=== PATIENT | female | born 1945 | race Caucasian/White ===

== ENCOUNTER 2017-04-08 11:15 | Inpatient (IN) | payer OTHER, BC ==
[~2017-04-08] VITALS: Ht 157.5 cm; Wt 90.0 kg
[2017-04-08] VITALS (10 sets, daily range): BP systolic 72–138; BP diastolic 42–110
[~2017-04-08 11:15] MED LIST: BAYER CHILDREN'81 M1 PO; CRESTOR20 MG PO; FISH OIL 1,0001 EAC7 PO; LEXAPRO20 MG PO; MULTI VITAMIN1 EACH PO; NASONEX17 GM NS; NEXIUM40 MG PO; TOPROL XL50 MG PO
[2017-04-08 12:34] LABS: BASE EXCESS -14.6 mEq/L (-3 to +3); BICARBONATE 12.7 mEq/L (22-26); CARBOXY HGB 4.3 % (0-5); METHEMOGLOBIN 1.5 % (0-1.5); PCO2 34 mm Hg (35-45); PO2 244 mm Hg (80-100)
[2017-04-08 12:35] LABS: COMMENTS - BLOOD GASES C+; SITE ALINE
[2017-04-08 12:36] LABS: DEVICE VENT; FI02 100 %; MECHANICAL RATE 18 resp/min; MODE ACVC; PEEP 5 CM/H20; TIDAL VOLUME 500 ML; TOTAL RESP RATE 18 resp/min
[2017-04-08 12:37] LABS: INTER. NORMALIZED RATIO 1.2
[2017-04-08 12:37] LABS: pH 7.18 (7.35-7.45)
[2017-04-08 12:39] LABS: PTT 43.9 SEC (25-37)
[2017-04-08 12:41] LABS: AMYLASE 128 IU/L (1-118); CHLORIDE 109 mEq/L (99-109); POTASSIUM 3.9 mEq/L (3.7-5.4); SODIUM 138 mEq/L (136-147)
[2017-04-08 12:43] LABS: GLUCOSE 381 mg/dL (70-99)
[2017-04-08 12:46] LABS: SERUM ETHYL ALCOHOL < 10 mg/dL
[2017-04-08 12:47] LABS: CREATININE 1.2 mg/dL (0.6-1.3); GFR ESTIMATE (CALCULATED) 47 mL/min/
[2017-04-08 12:48] LABS: UREA NITROGEN (BUN) 14 mg/dL (9-23)
[2017-04-08 12:50] LABS: LIPASE 91 U/L (1.0-51.0)
[2017-04-08 12:53] LABS: TROP-I INTERPRETATION POSITIVE
[2017-04-08 16:16] LABS: BASOPHIL (%) 0.3 % (0-1); BASOPHIL COUNT 0.1 K/uL (0-0.1); EOSINOPHIL (%) 0.2 % (0-5); HEMATOCRIT 45.1 % (36.0-46.0); HEMOGLOBIN 16.1 G/DL (11.9-15.5); IMMATURE GRANULOCYTE (%) 0.6 % (0.0-0.7); LYMPHOCYTE COUNT 1.5 K/uL (1.0-2.8); MCH 33.2 PG (29.0-34.0); MCHC 35.7 G/DL (30.0-36.0); MONOCYTE (%) 6.9 % (3-12); MONOCYTE COUNT 1.5 K/uL (0-0.8); PLATELET COUNT 168 K/uL (156-360); RBC DIS.WIDTH-CV 13.6 % (11.8-14.6); RBC DIS.WIDTH-SD 45.9 % (39-53); RED BLOOD COUNT 4.85 M/uL (3.80-5.20); WHITE BLOOD COUNT 21.2 K/uL (4.1-10.2)
[2017-04-08 16:25] LABS: BASE EXCESS -4.9 mEq/L (-3 to +3); CARBOXY HGB 2.2 % (0-5); METHEMOGLOBIN 2.2 % (0-1.5); PCO2 31 mm Hg (35-45)
[2017-04-08 16:26] LABS: BICARBONATE 18.8 mEq/L (22-26); COMMENTS - BLOOD GASES A+C+; DEVICE VENT; FI02 100 %; MECHANICAL RATE 22 resp/min; MODE ACVC; PEEP 10 CM/H20; PO2 414 mm Hg (80-100); SITE LR; TIDAL VOLUME 500 ML; TOTAL RESP RATE 22 resp/min; pH 7.39 (7.35-7.45)
[2017-04-08 17:27] LABS: C DIFF TOXIN NEGATIVE (NEGATIVE)
[2017-04-08 18:09] LABS: BASOPHIL (%) 0.3 % (0-1); BASOPHIL COUNT 0.1 K/uL (0-0.1); EOSINOPHIL (%) 0.1 % (0-5); HEMATOCRIT 46.5 % (36.0-46.0); HEMOGLOBIN 16.1 G/DL (11.9-15.5); IMMATURE GRANULOCYTE (%) 0.7 % (0.0-0.7); LYMPHOCYTE (%) 5.1 % (15-42); LYMPHOCYTE COUNT 1.2 K/uL (1.0-2.8); MCH 32.2 PG (29.0-34.0); MCHC 34.6 G/DL (30.0-36.0); MONOCYTE (%) 6.5 % (3-12); MONOCYTE COUNT 1.6 K/uL (0-0.8); NEUTROPHIL (%) 87.3 % (45-76); NEUTROPHIL COUNT 20.9 K/uL (1.8-6.4); PLATELET COUNT 174 K/uL (156-360); RBC DIS.WIDTH-CV 13.6 % (11.8-14.6); RBC DIS.WIDTH-SD 46.1 % (39-53); WHITE BLOOD COUNT 23.9 K/uL (4.1-10.2)
[2017-04-08 18:15] LABS: INTER. NORMALIZED RATIO 1.2
[2017-04-08 19:00] LABS: TROP-I INTERPRETATION POSITIVE; TROPONIN-I 108.07 ng/mL (0.0-0.30)
[2017-04-08 20:32] LABS: CHLORIDE 105 MEQ/L (99-109); CREATININE 1.1 MG/DL (0.6-1.3); GFR ESTIMATE (CALCULATED) 52 mL/min/; GLUCOSE 257 mg/dL (70-99); MAGNESIUM 1.8 mg/dl (1.3-2.7); PHOSPHORUS 2.4 mg/dL (2.5-4.9); POTASSIUM 3.1 MEQ/L (3.7-5.4); SODIUM 142 MEQ/L (136-147); UREA NITROGEN (BUN) 19 mg/dL (9-23)
[2017-04-08 20:59] LABS: CREATINE KINASE 6040 IU/L (1-294)
[2017-04-08 21:08] LABS: TOTAL CK 6040 IU/L (1-294)
[2017-04-08 21:21] LABS: CK-MB 329.4 ng/mL (0.0-4.9); CKMB RELATIVE INDEX 5.5 (0.0-3.9)
[2017-04-09] VITALS (23 sets, daily range): BP systolic 87–140; BP diastolic 64–92
[2017-04-09 00:40] LABS: BASOPHIL (%) 0.2 % (0-1); EOSINOPHIL (%) 0.1 % (0-5); HEMATOCRIT 43.3 % (36.0-46.0); IMMATURE GRANULOCYTE (%) 0.6 % (0.0-0.7); LYMPHOCYTE (%) 6.4 % (15-42); LYMPHOCYTE COUNT 1.2 K/uL (1.0-2.8); MCH 33.2 PG (29.0-34.0); MCHC 34.6 G/DL (30.0-36.0); MCV 95.8 FL (83-99); MONOCYTE (%) 4.6 % (3-12); MONOCYTE COUNT 0.9 K/uL (0-0.8); NEUTROPHIL (%) 88.1 % (45-76); NEUTROPHIL COUNT 16.5 K/uL (1.8-6.4); PLATELET COUNT 153 K/uL (156-360); RBC DIS.WIDTH-CV 13.8 % (11.8-14.6); RBC DIS.WIDTH-SD 48.5 % (39-53); RED BLOOD COUNT 4.52 M/uL (3.80-5.20); WHITE BLOOD COUNT 18.7 K/uL (4.1-10.2)
[2017-04-09 00:50] LABS: INTER. NORMALIZED RATIO 1.1
[2017-04-09 00:51] LABS: CHLORIDE 112 mEq/L (99-109); MAGNESIUM 1.9 mg/dL (1.3-2.7); POTASSIUM 3.3 mEq/L (3.7-5.4); SODIUM 141 mEq/L (136-147)
[2017-04-09 00:53] LABS: GLUCOSE 203 mg/dL (70-99)
[2017-04-09 00:56] LABS: PHOSPHORUS 3.3 mg/dL (2.5-4.9)
[2017-04-09 00:57] LABS: GFR ESTIMATE (CALCULATED) 58 mL/min/; UREA NITROGEN (BUN) 20 mg/dL (9-23)
[2017-04-09 01:02] LABS: TROP-I INTERPRETATION POSITIVE
[2017-04-09 01:11] LABS: TOTAL CK 7749 IU/L (1-294)
[2017-04-09 01:21] LABS: CREATINE KINASE 7749 IU/L (1-294)
[2017-04-09 01:27] LABS: TROPONIN-I 74.87 ng/mL (0.0-0.30)
[2017-04-09 01:43] LABS: CK-MB 514.1 ng/mL (0.0-4.9); CKMB RELATIVE INDEX 6.6 (0.0-3.9)
[2017-04-09 02:02] LABS: BASE EXCESS -9.7 mEq/L (-3 to +3); CARBOXY HGB 1.3 % (0-5); METHEMOGLOBIN 1.8 % (0-1.5); PCO2 34 mm Hg (35-45)
[2017-04-09 02:03] LABS: COMMENTS - BLOOD GASES C+; DEVICE VENT; FI02 70 %; MECHANICAL RATE 22 resp/min; MODE AC; PEEP 10 CM/H20; PO2 278 mm Hg (80-100); SITE LEFT BRACH; TIDAL VOLUME 500 ML; TOTAL RESP RATE 22 resp/min; pH 7.28 (7.35-7.45)
[2017-04-09 05:30] LABS: INTER. NORMALIZED RATIO 1.1
[2017-04-09 06:00] LABS: HEMATOCRIT 41.6 % (36.0-46.0); HEMOGLOBIN 14.2 G/DL (11.9-15.5); MCH 32.3 PG (29.0-34.0); MCHC 34.1 G/DL (30.0-36.0); MCV 94.8 FL (83-99); PLATELET COUNT UNABLE TO REPORT K/uL (156-360); RBC DIS.WIDTH-CV 13.9 % (11.8-14.6); RBC DIS.WIDTH-SD 47.8 % (39-53); RED BLOOD COUNT 4.39 M/uL (3.80-5.20); WHITE BLOOD COUNT 15.5 K/uL (4.1-10.2)
[2017-04-09 06:04] LABS: TROP-I INTERPRETATION POSITIVE; TROPONIN-I 76.12 ng/mL (0.0-0.30)
[2017-04-09 06:10] LABS: CHLORIDE 111 MEQ/L (99-109); CREATININE 0.9 MG/DL (0.6-1.3); GFR ESTIMATE (CALCULATED) > 59 mL/min/; GLUCOSE 225 mg/dL (70-99); HDL CHOLESTEROL 29 MG/DL (Desirable>=50); LDL CHOLESTEROL 48 mg/dL (Desirable<100); MAGNESIUM 1.7 mg/dl (1.3-2.7); NON-HDL CHOLESTEROL 123 mg/dL (Desirable<160); POTASSIUM 2.8 MEQ/L (3.7-5.4); SODIUM 145 MEQ/L (136-147); TOTAL CHOLESTEROL 152 mg/dL (Desirable<200); TOTAL CK 8130 IU/L (1-294); TRIGLYCERIDES 373 MG/DL (Normal: <150); UREA NITROGEN (BUN) 22 mg/dL (9-23)
[2017-04-09 06:11] LABS: CREATINE KINASE 8130 IU/L (1-294); PHOSPHORUS 3.3 mg/dL (2.5-4.9)
[2017-04-09 07:26] LABS: CK-MB 542.7 ng/mL (0.0-4.9); CKMB RELATIVE INDEX 6.7 (0.0-3.9)
[2017-04-09 09:35] LABS: BASE EXCESS -3.3 mEq/L (-3 to +3); CARBOXY HGB 1.4 % (0-5); METHEMOGLOBIN 1.3 % (0-1.5); PCO2 30 mm Hg (35-45)
[2017-04-09 09:36] LABS: BICARBONATE 19.9 mEq/L (22-26); COMMENTS - BLOOD GASES C+; DEVICE VENT; FI02 40 %; MECHANICAL RATE 10 resp/min; MODE SIMV; PEEP 7 CM/H20; PO2 91 mm Hg (80-100); PRES. SUPPORT 12 CM/H2O; SITE R FEMORAL A LINE; TOTAL RESP RATE 21 resp/min; pH 7.43 (7.35-7.45)
[2017-04-09 12:08] LABS: CHLORIDE 110 MEQ/L (99-109); GFR ESTIMATE (CALCULATED) 58 mL/min/; GLUCOSE 175 mg/dL (70-99); SODIUM 144 MEQ/L (136-147); UREA NITROGEN (BUN) 21 mg/dL (9-23)
[2017-04-09 12:19] LABS: TROP-I INTERPRETATION POSITIVE; TROPONIN-I 98.13 ng/mL (0.0-0.30)
[2017-04-09 16:54] LABS: INTER. NORMALIZED RATIO 1.1
[2017-04-09 16:58] LABS: PTT 27.9 SEC (25-37)
[2017-04-09 18:20] LABS: APPEARANCE TURBID ((CLEAR)); BILIRUBIN NEGATIVE; BLOOD LARGE; COLOR AMBER ((YELLOW)); GLUCOSE (STRIP) NEGATIVE; KETONES NEGATIVE; LEUKOCYTES NEGATIVE; NITRITE NEGATIVE; PROTEIN (STRIP) 100; UROBILINOGEN 0.2 MG/DL (0.2-1.0)
[2017-04-09 18:26] LABS: UR CREATININE CONCENTRATION 116.1 MG/DL
[2017-04-09 18:30] LABS: BACTERIA 2+ /HPF; EPITHELIAL CELLS 1+ /HPF; MUCUS NONE SEEN /LPF; RED BLOOD CELLS 20-30 /HPF (0-5); UCUL ADDED? YES; WHITE BLOOD CELLS 0-5 /HPF (0-5)
[2017-04-09 18:31] LABS: AMORPHOUS URATES CRYSTALS 3+
[2017-04-09 19:13] LABS: TROP-I INTERPRETATION POSITIVE; TROPONIN-I 93.59 ng/mL (0.0-0.30)
[2017-04-09 20:33] LABS: CHLORIDE 109 MEQ/L (99-109); CREATININE 0.8 MG/DL (0.6-1.3); GFR ESTIMATE (CALCULATED) > 59 mL/min/; GLUCOSE 126 mg/dL (70-99); SODIUM 142 MEQ/L (136-147); UREA NITROGEN (BUN) 20 mg/dL (9-23)
[2017-04-09 20:35] LABS: TOTAL CK 28240 IU/L (1-294)
[2017-04-09 20:36] LABS: CREATINE KINASE 28240 IU/L (1-294)
[2017-04-09 20:47] LABS: ALBUMIN 3.2 G/DL (3.2-4.8); ALKALINE PHOSPHATASE 45 IU/L (3-129); ALT (GPT) 269 IU/L (3-49); AST (GOT) 482 IU/L (2-34); CHLORIDE 109 MEQ/L (99-109); CREATININE 0.9 MG/DL (0.6-1.3); DIRECT BILIRUBIN 0.1 mg/dL (0.0-0.3); GFR ESTIMATE (CALCULATED) > 59 mL/min/; GLUCOSE 117 mg/dL (70-99); MAGNESIUM 1.7 mg/dl (1.3-2.7); PHOSPHORUS 3.4 mg/dL (2.5-4.9); POTASSIUM 3.4 MEQ/L (3.7-5.4); SODIUM 144 MEQ/L (136-147); TOTAL BILIRUBIN 0.5 MG/DL (0.0-1.0); TOTAL PROTEIN 5.1 G/DL (6.4-8.3); UREA NITROGEN (BUN) 21 mg/dL (9-23)
[2017-04-09 21:28] LABS: CKMB RELATIVE INDEX 1.9 (0.0-3.9)
[2017-04-09 21:30] LABS: CK-MB 538.7 ng/mL (0.0-4.9)
[2017-04-09 22:22] LABS: BASE EXCESS 1.5 mEq/L (-3 to +3); BICARBONATE 23.7 mEq/L (22-26); CARBOXY HGB 1.1 % (0-5); METHEMOGLOBIN 1.6 % (0-1.5); PCO2 29 mm Hg (35-45); pH 7.52 (7.35-7.45)
[2017-04-09 22:23] LABS: COMMENTS - BLOOD GASES C+; DEVICE VENT; FI02 40 %; MECHANICAL RATE 8 resp/min; MODE SIMV; PEEP 7 CM/H20; PO2 69 mm Hg (80-100); PRES. SUPPORT 12 CM/H2O; SITE ALINE; TIDAL VOLUME 550 ML; TOTAL RESP RATE 23 resp/min
[2017-04-10] VITALS (7 sets, daily range): BP systolic 74–183; BP diastolic 48–93
[2017-04-10 00:02] LABS: BASE EXCESS 2.1 mEq/L (-3 to +3); BICARBONATE 24.2 mEq/L (22-26); CARBOXY HGB 1.1 % (0-5); METHEMOGLOBIN 1.3 % (0-1.5); PCO2 29 mm Hg (35-45); PO2 77 mm Hg (80-100); pH 7.53 (7.35-7.45)
[2017-04-10 00:03] LABS: DEVICE VENT; FI02 40 %; MECHANICAL RATE 12 resp/min; MODE SIMV; PEEP 7 CM/H20; PRES. SUPPORT 12 CM/H2O; SITE ALINE; TIDAL VOLUME 550 ML; TOTAL RESP RATE 17 resp/min
[2017-04-10 05:36] LABS: BASE EXCESS 7.1 mEq/L (-3 to +3); BICARBONATE 30.1 mEq/L (22-26); CARBOXY HGB 1.2 % (0-5); DEVICE VENT; FI02 40 %; METHEMOGLOBIN 1.6 % (0-1.5); PCO2 36 mm Hg (35-45); PO2 87 mm Hg (80-100); SITE ALINE; pH 7.53 (7.35-7.45)
[2017-04-10 05:37] LABS: MECHANICAL RATE 12 resp/min; MODE SIMV; PEEP 7 CM/H20; PRES. SUPPORT 12 CM/H2O; TIDAL VOLUME 550 ML; TOTAL RESP RATE 12 resp/min
[2017-04-10 05:48] LABS: BASOPHIL (%) 0.1 % (0-1); EOSINOPHIL (%) 0.1 % (0-5); IMMATURE GRANULOCYTE (%) 0.5 % (0.0-0.7); LYMPHOCYTE (%) 8.7 % (15-42); MCH 32.4 PG (29.0-34.0); MCHC 35.6 G/DL (30.0-36.0); MCV 90.9 FL (83-99); MONOCYTE (%) 6.3 % (3-12); MONOCYTE COUNT 0.7 K/uL (0-0.8); NEUTROPHIL (%) 84.3 % (45-76); NEUTROPHIL COUNT 9.2 K/uL (1.8-6.4); RBC DIS.WIDTH-CV 13.9 % (11.8-14.6); RBC DIS.WIDTH-SD 45.9 % (39-53); RED BLOOD COUNT 3.52 M/uL (3.80-5.20); WHITE BLOOD COUNT 10.9 K/uL (4.1-10.2)
[2017-04-10 05:50] LABS: INTER. NORMALIZED RATIO 1.2
[2017-04-10 05:52] LABS: PTT 28.7 SEC (25-37)
[2017-04-10 06:08] LABS: HEMOGLOBIN 11.4 G/DL (11.9-15.5); PLATELET COUNT 72 K/uL (156-360)
[2017-04-10 07:46] LABS: CK-MB 298.5 ng/mL (0.0-4.9)
[2017-04-10 08:00] LABS: ALBUMIN 2.8 G/DL (3.2-4.8); ALKALINE PHOSPHATASE 45 IU/L (3-129); ALT (GPT) 274 IU/L (3-49); AST (GOT) 503 IU/L (2-34); CKMB RELATIVE INDEX 0.8 (0.0-3.9); DIRECT BILIRUBIN 0.1 mg/dL (0.0-0.3); MAGNESIUM 1.6 mg/dl (1.3-2.7); TOTAL CK 37450 IU/L (1-294); TOTAL PROTEIN 4.4 G/DL (6.4-8.3)
[2017-04-10 08:03] LABS: CREATINE KINASE 37450 IU/L (1-294); TOTAL BILIRUBIN 0.7 MG/DL (0.0-1.0)
[2017-04-10 08:22] LABS: CHLORIDE 107 mEq/L (99-109); POTASSIUM 2.9 mEq/L (3.7-5.4); SODIUM 147 mEq/L (136-147)
[2017-04-10 08:24] LABS: GLUCOSE 121 mg/dL (70-99); MAGNESIUM 1.6 mg/dL (1.3-2.7)
[2017-04-10 08:28] LABS: CREATININE 0.8 mg/dL (0.6-1.3); GFR ESTIMATE (CALCULATED) > 59 mL/min/; PHOSPHORUS 3.7 mg/dL (2.5-4.9)
[2017-04-10 08:29] LABS: UREA NITROGEN (BUN) 19 mg/dL (9-23)
[2017-04-10 12:13] LABS: INTER. NORMALIZED RATIO 1.2
[2017-04-10 12:20] LABS: HEMATOCRIT 29.2 % (36.0-46.0); HEMOGLOBIN 10.4 G/DL (11.9-15.5); MCH 33.1 PG (29.0-34.0); MCHC 35.6 G/DL (30.0-36.0); PLATELET COUNT 65 K/uL (156-360); RBC DIS.WIDTH-CV 14.3 % (11.8-14.6); RBC DIS.WIDTH-SD 47.6 % (39-53); RED BLOOD COUNT 3.14 M/uL (3.80-5.20); WHITE BLOOD COUNT 9.4 K/uL (4.1-10.2)
[2017-04-10 12:45] LABS: CHLORIDE 111 MEQ/L (99-109); CREATININE 0.8 MG/DL (0.6-1.3); GFR ESTIMATE (CALCULATED) > 59 mL/min/; GLUCOSE 106 mg/dL (70-99); POTASSIUM 2.8 MEQ/L (3.7-5.4); SODIUM 150 MEQ/L (136-147); UREA NITROGEN (BUN) 17 mg/dL (9-23)
[2017-04-10 18:04] LABS: HEMATOCRIT 26.9 % (36.0-46.0); HEMOGLOBIN 9.6 G/DL (11.9-15.5); MCH 33.2 PG (29.0-34.0); MCHC 35.7 G/DL (30.0-36.0); MCV 93.1 FL (83-99); PLATELET COUNT 66 K/uL (156-360); RBC DIS.WIDTH-CV 14.2 % (11.8-14.6); RBC DIS.WIDTH-SD 47.9 % (39-53); RED BLOOD COUNT 2.89 M/uL (3.80-5.20); WHITE BLOOD COUNT 8.3 K/uL (4.1-10.2)
[2017-04-10 18:14] LABS: INTER. NORMALIZED RATIO 1.1
[2017-04-11] VITALS: BP 115/77
[2017-04-11 04:00] VITALS: BP 138/87
[2017-04-11 05:41] LABS: BASOPHIL (%) 0.1 % (0-1); EOSINOPHIL (%) 0.2 % (0-5); HEMOGLOBIN 9.4 G/DL (11.9-15.5); IMMATURE GRANULOCYTE (%) 0.7 % (0.0-0.7); LYMPHOCYTE (%) 11.1 % (15-42); MCH 32.1 PG (29.0-34.0); MCHC 33.6 G/DL (30.0-36.0); MCV 95.6 FL (83-99); MONOCYTE (%) 4.9 % (3-12); MONOCYTE COUNT 0.4 K/uL (0-0.8); NEUTROPHIL COUNT 7.2 K/uL (1.8-6.4); PLATELET COUNT 66 K/uL (156-360); RBC DIS.WIDTH-CV 14.5 % (11.8-14.6); RBC DIS.WIDTH-SD 50.6 % (39-53); RED BLOOD COUNT 2.93 M/uL (3.80-5.20); WHITE BLOOD COUNT 8.6 K/uL (4.1-10.2)
[2017-04-11 05:43] LABS: INTER. NORMALIZED RATIO 1.1
[2017-04-11 05:46] LABS: PTT 26.8 SEC (25-37)
[2017-04-11 06:05] LABS: CHLORIDE 114 MEQ/L (99-109); CREATININE 0.8 MG/DL (0.6-1.3); GFR ESTIMATE (CALCULATED) > 59 mL/min/; GLUCOSE 86 mg/dL (70-99); MAGNESIUM 1.6 mg/dl (1.3-2.7); POTASSIUM 3.1 MEQ/L (3.7-5.4); SODIUM 148 MEQ/L (136-147); UREA NITROGEN (BUN) 15 mg/dL (9-23)
[2017-04-11 06:06] LABS: PHOSPHORUS 2.1 mg/dL (2.5-4.9)
[2017-04-11 08:00] VITALS: BP 133/90
[2017-04-11] MEDS ORDERED: AMLODIPINE BESYL5 MG PO (09:12)
[2017-04-11] MEDS ORDERED: RANITIDINE HCL150 MG PO (09:14)
[2017-04-11 14:39] LABS: Heparin Induced Plt Ab Negative (Negative)
[2017-04-11 15:46] LABS: UFH SRA Result Negative (Negative)
[2017-04-12] VITALS (12 sets, daily range): BP systolic 117–186; BP diastolic 86–125
[2017-04-12 05:31] LABS: BASOPHIL (%) 0.3 % (0-1); EOSINOPHIL (%) 1.3 % (0-5); EOSINOPHIL COUNT 0.1 K/uL (0-0.3); IMMATURE GRANULOCYTE (%) 0.4 % (0.0-0.7); LYMPHOCYTE (%) 13.5 % (15-42); MCH 32.7 PG (29.0-34.0); MCHC 33.3 G/DL (30.0-36.0); MCV 98.2 FL (83-99); MONOCYTE (%) 5.9 % (3-12); MONOCYTE COUNT 0.4 K/uL (0-0.8); NEUTROPHIL (%) 78.6 % (45-76); NEUTROPHIL COUNT 5.6 K/uL (1.8-6.4); PLATELET COUNT 56 K/uL (156-360); RBC DIS.WIDTH-CV 14.9 % (11.8-14.6); RED BLOOD COUNT 2.75 M/uL (3.80-5.20); WHITE BLOOD COUNT 7.1 K/uL (4.1-10.2)
[2017-04-12 06:10] LABS: ALBUMIN 2.4 G/DL (3.2-4.8); ALKALINE PHOSPHATASE 46 IU/L (3-129); ALT (GPT) 169 IU/L (3-49); AST (GOT) 205 IU/L (2-34); CHLORIDE 118 MEQ/L (99-109); CREATININE 0.6 MG/DL (0.6-1.3); GFR ESTIMATE (CALCULATED) > 59 mL/min/; GLUCOSE 78 mg/dL (70-99); PHOSPHORUS 3.8 mg/dL (2.5-4.9); POTASSIUM 3.1 MEQ/L (3.7-5.4); SODIUM 150 MEQ/L (136-147); TOTAL BILIRUBIN 0.6 MG/DL (0.0-1.0); TOTAL PROTEIN 4.1 G/DL (6.4-8.3); UREA NITROGEN (BUN) 13 mg/dL (9-23)
[2017-04-12 06:15] LABS: CREATINE KINASE 9305 IU/L (1-294)
[2017-04-12 16:23] LABS: CHLORIDE 117 MEQ/L (99-109); CREATININE 0.6 MG/DL (0.6-1.3); GFR ESTIMATE (CALCULATED) > 59 mL/min/; GLUCOSE 72 mg/dL (70-99); POTASSIUM 3.5 MEQ/L (3.7-5.4); SODIUM 149 MEQ/L (136-147); UREA NITROGEN (BUN) 10 mg/dL (9-23)
[2017-04-12 22:00] LABS: Heparin Induced Plt Ab Negative (Negative)
[2017-04-13] VITALS (26 sets, daily range): BP systolic 111–188; BP diastolic 75–140
[2017-04-13 08:06] LABS: UFH SRA Result Negative (Negative)
[2017-04-13 10:20] LABS: CARBOXY HGB 2.1 % (0-5); COMMENTS - BLOOD GASES A+C+; DEVICE NC; METHEMOGLOBIN 1.7 % (0-1.5); O2 FLOW 2 L/MIN; PCO2 < 19 mm Hg (35-45); PO2 71 mm Hg (80-100); SITE LR; TOTAL RESP RATE 24 resp/min; pH 7.51 (7.35-7.45)
[2017-04-13 10:48] LABS: BASOPHIL (%) 0.2 % (0-1); EOSINOPHIL (%) 0.3 % (0-5); HEMATOCRIT 34.1 % (36.0-46.0); IMMATURE GRANULOCYTE (%) 1.2 % (0.0-0.7); LYMPHOCYTE (%) 8.3 % (15-42); LYMPHOCYTE COUNT 0.8 K/uL (1.0-2.8); MCH 32.2 PG (29.0-34.0); MCHC 34.6 G/DL (30.0-36.0); MONOCYTE (%) 9.7 % (3-12); MONOCYTE COUNT 0.9 K/uL (0-0.8); NEUTROPHIL (%) 80.3 % (45-76); NEUTROPHIL COUNT 7.5 K/uL (1.8-6.4); RBC DIS.WIDTH-CV 13.8 % (11.8-14.6); RBC DIS.WIDTH-SD 47.3 % (39-53); WHITE BLOOD COUNT 9.4 K/uL (4.1-10.2)
[2017-04-13 10:49] LABS: HEMOGLOBIN 11.8 G/DL (11.9-15.5); MCV 92.9 FL (83-99); PLATELET COUNT 80 K/uL (156-360); RED BLOOD COUNT 3.67 M/uL (3.80-5.20)
[2017-04-13 10:54] LABS: CHLORIDE 109 MEQ/L (99-109); CREATININE 0.5 MG/DL (0.6-1.3); GFR ESTIMATE (CALCULATED) > 59 mL/min/; GLUCOSE 81 mg/dL (70-99); MAGNESIUM 1.7 mg/dl (1.3-2.7); PHOSPHORUS 3.2 mg/dL (2.5-4.9); SODIUM 143 MEQ/L (136-147); UREA NITROGEN (BUN) 10 mg/dL (9-23)
[2017-04-13 10:56] LABS: CREATINE KINASE 11359 IU/L (1-294)
[2017-04-14] VITALS (23 sets, daily range): BP systolic 113–165; BP diastolic 83–115
[2017-04-14 06:00] LABS: BASOPHIL (%) 0.2 % (0-1); EOSINOPHIL (%) 1.2 % (0-5); EOSINOPHIL COUNT 0.1 K/uL (0-0.3); HEMATOCRIT 33.8 % (36.0-46.0); HEMOGLOBIN 11.5 G/DL (11.9-15.5); IMMATURE GRANULOCYTE (%) 1.3 % (0.0-0.7); LYMPHOCYTE (%) 9.3 % (15-42); LYMPHOCYTE COUNT 0.9 K/uL (1.0-2.8); MCH 31.9 PG (29.0-34.0); MCV 93.6 FL (83-99); MONOCYTE (%) 11.9 % (3-12); MONOCYTE COUNT 1.1 K/uL (0-0.8); NEUTROPHIL (%) 76.1 % (45-76); PLATELET COUNT 87 K/uL (156-360); RBC DIS.WIDTH-CV 13.7 % (11.8-14.6); RBC DIS.WIDTH-SD 46.7 % (39-53); RED BLOOD COUNT 3.61 M/uL (3.80-5.20); WHITE BLOOD COUNT 9.2 K/uL (4.1-10.2)
[2017-04-14 06:27] LABS: CHLORIDE 115 MEQ/L (99-109); CREATININE 0.5 MG/DL (0.6-1.3); GFR ESTIMATE (CALCULATED) > 59 mL/min/; GLUCOSE 86 mg/dL (70-99); MAGNESIUM 1.8 mg/dl (1.3-2.7); PHOSPHORUS 2.6 mg/dL (2.5-4.9); POTASSIUM 3.2 MEQ/L (3.7-5.4); SODIUM 144 MEQ/L (136-147); UREA NITROGEN (BUN) 12 mg/dL (9-23)
[2017-04-14 16:42] LABS: INTER. NORMALIZED RATIO 1.1
[2017-04-14 16:44] LABS: PTT 24.5 SEC (25-37)
[2017-04-14 18:22] LABS: ALBUMIN 3.4 G/DL (3.2-4.8); ALT (GPT) 189 IU/L (3-49); AST (GOT) 127 IU/L (2-34); DIRECT BILIRUBIN 0.2 mg/dL (0.0-0.3)
[2017-04-14 18:25] LABS: TOTAL BILIRUBIN 0.9 MG/DL (0.0-1.0); TOTAL PROTEIN 5.9 G/DL (6.4-8.3)
[2017-04-14 18:26] LABS: ALKALINE PHOSPHATASE 110 IU/L (3-129)
[2017-04-15] VITALS (29 sets, daily range): BP systolic 106–172; BP diastolic 70–125
[2017-04-15 07:20] LABS: BASOPHIL (%) 0.1 % (0-1); EOSINOPHIL (%) 2.6 % (0-5); EOSINOPHIL COUNT 0.2 K/uL (0-0.3); HEMATOCRIT 33.1 % (36.0-46.0); HEMOGLOBIN 11.8 G/DL (11.9-15.5); IMMATURE GRANULOCYTE (%) 1.1 % (0.0-0.7); LYMPHOCYTE (%) 14.5 % (15-42); LYMPHOCYTE COUNT 1.3 K/uL (1.0-2.8); MCH 31.8 PG (29.0-34.0); MCHC 35.6 G/DL (30.0-36.0); MCV 89.2 FL (83-99); MONOCYTE (%) 14.2 % (3-12); MONOCYTE COUNT 1.2 K/uL (0-0.8); NEUTROPHIL (%) 67.5 % (45-76); NEUTROPHIL COUNT 5.9 K/uL (1.8-6.4); PLATELET COUNT 109 K/uL (156-360); RBC DIS.WIDTH-CV 13.2 % (11.8-14.6); RBC DIS.WIDTH-SD 42.9 % (39-53); RED BLOOD COUNT 3.71 M/uL (3.80-5.20); WHITE BLOOD COUNT 8.8 K/uL (4.1-10.2)
[2017-04-15 07:42] LABS: ALBUMIN 3.4 G/DL (3.2-4.8); ALKALINE PHOSPHATASE 60 IU/L (3-129); ALT (GPT) 179 IU/L (3-49); AST (GOT) 114 IU/L (2-34); CHLORIDE 105 MEQ/L (99-109); CREATINE KINASE 1770 IU/L (1-294); CREATININE 0.6 MG/DL (0.6-1.3); GFR ESTIMATE (CALCULATED) > 59 mL/min/; GLUCOSE 114 mg/dL (70-99); MAGNESIUM 1.5 mg/dl (1.3-2.7); PHOSPHORUS 1.9 mg/dL (2.5-4.9); POTASSIUM 2.6 MEQ/L (3.7-5.4); SODIUM 145 MEQ/L (136-147); TOTAL BILIRUBIN 0.9 MG/DL (0.0-1.0); TOTAL PROTEIN 5.7 G/DL (6.4-8.3); UREA NITROGEN (BUN) 11 mg/dL (9-23)
[2017-04-15 14:33] LABS: HEMATOCRIT 30.1 % (36.0-46.0); IMM.RETIC FRACTION 17.2 % (3-19); MCH 32.9 PG (29.0-34.0); MCHC 36.5 G/DL (30.0-36.0); MCV 90.1 FL (83-99); PLATELET COUNT 98 K/uL (156-360); RBC DIS.WIDTH-CV 13.2 % (11.8-14.6); RBC DIS.WIDTH-SD 42.8 % (39-53); RED BLOOD COUNT 3.34 M/uL (3.80-5.20); RETIC HGB EQUIVALENT 36.3 (28-36); RETICULOCYTE COUNT 2.7 % (0.5-1.8); WHITE BLOOD COUNT 7.6 K/uL (4.1-10.2)
[2017-04-15 14:55] LABS: DIRECT BILIRUBIN 0.2 mg/dL (0.0-0.3); TOTAL BILIRUBIN 0.9 MG/DL (0.0-1.0)
[2017-04-15 15:01] LABS: ABS NEUTROPHIL COUNT 5.5; ANISOCYTOSIS 1+; EOSINOPHIL ABS CT 0.1; EOSINOPHILS 0.9 % (0-5.0); LYMPHOCYTES 17.4 % (15.0-45.0); MACROCYTES 1+; MICROCYTOSIS 2+; MONOCYTES 8.7 % (0-9.0); PLAT.SUFFICIENCY DECREASED; POLYCHROMASIA 1+
[2017-04-16 00:37] VITALS: BP 139/89
[2017-04-16 04:37] VITALS: BP 125/90
[2017-04-16 07:12] VITALS: BP 124/79
[2017-04-16 07:28] LABS: BASOPHIL (%) 0.1 % (0-1); EOSINOPHIL (%) 1.6 % (0-5); EOSINOPHIL COUNT 0.1 K/uL (0-0.3); HEMATOCRIT 28.4 % (36.0-46.0); HEMOGLOBIN 10.1 G/DL (11.9-15.5); IMMATURE GRANULOCYTE (%) 0.7 % (0.0-0.7); LYMPHOCYTE (%) 18.9 % (15-42); LYMPHOCYTE COUNT 1.4 K/uL (1.0-2.8); MCH 32.2 PG (29.0-34.0); MCHC 35.6 G/DL (30.0-36.0); MCV 90.4 FL (83-99); MONOCYTE (%) 13.3 % (3-12); NEUTROPHIL (%) 65.4 % (45-76); NEUTROPHIL COUNT 4.8 K/uL (1.8-6.4); PLATELET COUNT 105 K/uL (156-360); RBC DIS.WIDTH-CV 13.4 % (11.8-14.6); RBC DIS.WIDTH-SD 43.3 % (39-53); RED BLOOD COUNT 3.14 M/uL (3.80-5.20); WHITE BLOOD COUNT 7.3 K/uL (4.1-10.2)
[2017-04-16 08:18] LABS: ALBUMIN 3.1 G/DL (3.2-4.8); ALKALINE PHOSPHATASE 49 IU/L (3-129); ALT (GPT) 130 IU/L (3-49); AST (GOT) 71 IU/L (2-34); CHLORIDE 105 MEQ/L (99-109); CREATINE KINASE 962 IU/L (1-294); CREATININE 0.6 MG/DL (0.6-1.3); GFR ESTIMATE (CALCULATED) > 59 mL/min/; GLUCOSE 115 mg/dL (70-99); MAGNESIUM 1.3 mg/dl (1.3-2.7); PHOSPHORUS 3.6 mg/dL (2.5-4.9); POTASSIUM 2.6 MEQ/L (3.7-5.4); SODIUM 143 MEQ/L (136-147); TOTAL BILIRUBIN 0.7 MG/DL (0.0-1.0); TOTAL PROTEIN 5.1 G/DL (6.4-8.3); UREA NITROGEN (BUN) 9 mg/dL (9-23)
[2017-04-16 12:57] VITALS: BP 113/74
[2017-04-16 14:59] VITALS: BP 153/96
[2017-04-16 23:00] VITALS: BP 135/80
[2017-04-17 03:10] VITALS: BP 149/82
[2017-04-17 06:26] LABS: BASOPHIL (%) 0.3 % (0-1); EOSINOPHIL COUNT 0.2 K/uL (0-0.3); HEMATOCRIT 26.5 % (36.0-46.0); HEMOGLOBIN 9.3 G/DL (11.9-15.5); IMMATURE GRANULOCYTE (%) 0.8 % (0.0-0.7); LYMPHOCYTE (%) 15.7 % (15-42); LYMPHOCYTE COUNT 1.4 K/uL (1.0-2.8); MCH 32.4 PG (29.0-34.0); MCHC 35.1 G/DL (30.0-36.0); MCV 92.3 FL (83-99); MONOCYTE (%) 10.7 % (3-12); NEUTROPHIL (%) 70.5 % (45-76); NEUTROPHIL COUNT 6.3 K/uL (1.8-6.4); PLATELET COUNT 131 K/uL (156-360); RBC DIS.WIDTH-CV 13.8 % (11.8-14.6); RBC DIS.WIDTH-SD 45.5 % (39-53); RED BLOOD COUNT 2.87 M/uL (3.80-5.20)
[2017-04-17 06:59] LABS: ALBUMIN 3.2 G/DL (3.2-4.8); ALKALINE PHOSPHATASE 52 IU/L (3-129); ALT (GPT) 107 IU/L (3-49); AST (GOT) 53 IU/L (2-34); CHLORIDE 108 MEQ/L (99-109); CREATINE KINASE 761 IU/L (1-294); CREATININE 0.5 MG/DL (0.6-1.3); GFR ESTIMATE (CALCULATED) > 59 mL/min/; GLUCOSE 105 mg/dL (70-99); SODIUM 144 MEQ/L (136-147); TOTAL PROTEIN 5.5 G/DL (6.4-8.3); UREA NITROGEN (BUN) 9 mg/dL (9-23)
[2017-04-17 07:06] LABS: TOTAL BILIRUBIN 0.9 MG/DL (0.0-1.0)
[2017-04-17 20:17] VITALS: BP 130/76
[2017-04-17 23:45] VITALS: BP 154/90
[2017-04-18 05:08] VITALS: BP 134/90
[2017-04-18 05:41] LABS: BASOPHIL (%) 0.3 % (0-1); EOSINOPHIL (%) 2.2 % (0-5); EOSINOPHIL COUNT 0.2 K/uL (0-0.3); HEMATOCRIT 26.8 % (36.0-46.0); HEMOGLOBIN 9.6 G/DL (11.9-15.5); IMMATURE GRANULOCYTE (%) 0.6 % (0.0-0.7); LYMPHOCYTE (%) 14.7 % (15-42); LYMPHOCYTE COUNT 1.3 K/uL (1.0-2.8); MCH 33.3 PG (29.0-34.0); MCHC 35.8 G/DL (30.0-36.0); MCV 93.1 FL (83-99); MONOCYTE (%) 8.3 % (3-12); MONOCYTE COUNT 0.7 K/uL (0-0.8); NEUTROPHIL (%) 73.9 % (45-76); NEUTROPHIL COUNT 6.6 K/uL (1.8-6.4); PLATELET COUNT 147 K/uL (156-360); RBC DIS.WIDTH-CV 13.8 % (11.8-14.6); RBC DIS.WIDTH-SD 45.1 % (39-53); RED BLOOD COUNT 2.88 M/uL (3.80-5.20); WHITE BLOOD COUNT 8.9 K/uL (4.1-10.2)
[2017-04-18 06:06] LABS: CHLORIDE 108 MEQ/L (99-109); CREATINE KINASE 494 IU/L (1-294); CREATININE 0.6 MG/DL (0.6-1.3); GFR ESTIMATE (CALCULATED) > 59 mL/min/; GLUCOSE 106 mg/dL (70-99); MAGNESIUM 1.3 mg/dl (1.3-2.7); POTASSIUM 3.1 MEQ/L (3.7-5.4); SODIUM 141 MEQ/L (136-147); UREA NITROGEN (BUN) 8 mg/dL (9-23)
[2017-04-18 06:07] LABS: ALBUMIN 3.3 G/DL (3.2-4.8); ALKALINE PHOSPHATASE 55 IU/L (3-129); ALT (GPT) 88 IU/L (3-49); AST (GOT) 42 IU/L (2-34); CHLORIDE 108 MEQ/L (99-109); CREATINE KINASE 485 IU/L (1-294); CREATININE 0.6 MG/DL (0.6-1.3); GFR ESTIMATE (CALCULATED) > 59 mL/min/; GLUCOSE 109 mg/dL (70-99); POTASSIUM 2.9 MEQ/L (3.7-5.4); SODIUM 142 MEQ/L (136-147); TOTAL BILIRUBIN 0.9 MG/DL (0.0-1.0); TOTAL PROTEIN 6.1 G/DL (6.4-8.3); UREA NITROGEN (BUN) 8 mg/dL (9-23)
[2017-04-18 08:18] VITALS: BP 142/86
[2017-04-18 12:06] VITALS: BP 144/78
[2017-04-18 15:45] VITALS: BP 146/88
[2017-04-18 22:00] VITALS: BP 133/85
[2017-04-18 22:45] LABS: Heparin Induced Plt Ab Negative (Negative)
[2017-04-19 00:30] VITALS: BP 165/82
[2017-04-19 03:55] VITALS: BP 163/84
[2017-04-19 05:32] LABS: BASOPHIL (%) 0.3 % (0-1); EOSINOPHIL (%) 2.4 % (0-5); EOSINOPHIL COUNT 0.2 K/uL (0-0.3); HEMATOCRIT 28.9 % (36.0-46.0); IMMATURE GRANULOCYTE (%) 0.5 % (0.0-0.7); LYMPHOCYTE (%) 14.1 % (15-42); LYMPHOCYTE COUNT 1.3 K/uL (1.0-2.8); MCH 31.8 PG (29.0-34.0); MCHC 34.6 G/DL (30.0-36.0); MONOCYTE (%) 8.1 % (3-12); MONOCYTE COUNT 0.8 K/uL (0-0.8); NEUTROPHIL (%) 74.6 % (45-76); NEUTROPHIL COUNT 7.1 K/uL (1.8-6.4); RBC DIS.WIDTH-CV 14.1 % (11.8-14.6); RBC DIS.WIDTH-SD 45.3 % (39-53); RED BLOOD COUNT 3.14 M/uL (3.80-5.20); WHITE BLOOD COUNT 9.5 K/uL (4.1-10.2)
[2017-04-19 05:40] LABS: PLATELET COUNT 222 K/uL (156-360)
[2017-04-19 06:00] LABS: UFH SRA Result Negative (Negative)
[2017-04-19 06:03] LABS: ALBUMIN 3.4 G/DL (3.2-4.8); ALKALINE PHOSPHATASE 64 IU/L (3-129); ALT (GPT) 74 IU/L (3-49); AST (GOT) 32 IU/L (2-34); CHLORIDE 110 MEQ/L (99-109); CREATINE KINASE 254 IU/L (1-294); CREATININE 0.5 MG/DL (0.6-1.3); GFR ESTIMATE (CALCULATED) > 59 mL/min/; GLUCOSE 113 mg/dL (70-99); POTASSIUM 3.2 MEQ/L (3.7-5.4); SODIUM 143 MEQ/L (136-147); TOTAL BILIRUBIN 0.9 MG/DL (0.0-1.0); TOTAL PROTEIN 5.7 G/DL (6.4-8.3); UREA NITROGEN (BUN) 8 mg/dL (9-23)
[2017-04-19 07:47] VITALS: BP 158/97
[2017-04-19 20:17] VITALS: BP 162/82
[2017-04-19 23:45] VITALS: BP 163/73
[2017-04-20 04:10] VITALS: BP 160/85
[2017-04-20 07:21] LABS: CHLORIDE 110 MEQ/L (99-109); CREATININE 0.6 MG/DL (0.6-1.3); GFR ESTIMATE (CALCULATED) > 59 mL/min/; GLUCOSE 108 mg/dL (70-99); POTASSIUM 3.8 MEQ/L (3.7-5.4); SODIUM 142 MEQ/L (136-147); UREA NITROGEN (BUN) 10 mg/dL (9-23)
[2017-04-20 07:24] LABS: MAGNESIUM 1.5 mg/dl (1.3-2.7)
[2017-04-20 19:50] VITALS: BP 134/94
[2017-04-21] VITALS (8 sets, daily range): BP systolic 126–169; BP diastolic 76–102
[2017-04-22 02:55] VITALS: BP 138/84
[2017-04-22 05:21] LABS: HEMATOCRIT 30.3 % (36.0-46.0); HEMOGLOBIN 10.3 G/DL (11.9-15.5); MCV 94.1 FL (83-99); RBC DIS.WIDTH-CV 14.5 % (11.8-14.6); RBC DIS.WIDTH-SD 47.4 % (39-53); RED BLOOD COUNT 3.22 M/uL (3.80-5.20); WHITE BLOOD COUNT 12.2 K/uL (4.1-10.2)
[2017-04-22 05:40] LABS: PLATELET COUNT 311 K/uL (156-360)
[2017-04-22 06:00] LABS: CHLORIDE 111 MEQ/L (99-109); CREATININE 0.7 MG/DL (0.6-1.3); GFR ESTIMATE (CALCULATED) > 59 mL/min/; GLUCOSE 138 mg/dL (70-99); MAGNESIUM 1.4 mg/dl (1.3-2.7); POTASSIUM 3.6 MEQ/L (3.7-5.4); SODIUM 143 MEQ/L (136-147); UREA NITROGEN (BUN) 11 mg/dL (9-23)
[2017-04-22 09:25] VITALS: BP 189/111
[2017-04-22 12:13] VITALS: BP 148/104
[2017-04-22 14:01] VITALS: BP 127/78
[2017-04-22 16:26] VITALS: BP 129/83
[2017-04-23 00:50] VITALS: BP 173/103
[2017-04-23 07:09] LABS: HEMATOCRIT 30.3 % (36.0-46.0); HEMOGLOBIN 10.5 G/DL (11.9-15.5); MCH 31.7 PG (29.0-34.0); MCHC 34.7 G/DL (30.0-36.0); MCV 91.5 FL (83-99); PLATELET COUNT 329 K/uL (156-360); RBC DIS.WIDTH-CV 14.4 % (11.8-14.6); RBC DIS.WIDTH-SD 46.6 % (39-53); RED BLOOD COUNT 3.31 M/uL (3.80-5.20); WHITE BLOOD COUNT 11.8 K/uL (4.1-10.2)
[2017-04-23 07:34] LABS: CHLORIDE 106 MEQ/L (99-109); CREATININE 0.6 MG/DL (0.6-1.3); GFR ESTIMATE (CALCULATED) > 59 mL/min/; GLUCOSE 126 mg/dL (70-99); MAGNESIUM 1.5 mg/dl (1.3-2.7); POTASSIUM 3.3 MEQ/L (3.7-5.4); SODIUM 138 MEQ/L (136-147); UREA NITROGEN (BUN) 13 mg/dL (9-23)
[2017-04-23 07:37] VITALS: BP 153/70
[2017-04-23 07:49] LABS: ALBUMIN 3.6 G/DL (3.2-4.8); ALKALINE PHOSPHATASE 94 IU/L (3-129); ALT (GPT) 29 IU/L (3-49); AST (GOT) 21 IU/L (2-34); DIRECT BILIRUBIN 0.1 mg/dL (0.0-0.3); TOTAL BILIRUBIN 0.6 MG/DL (0.0-1.0); TOTAL PROTEIN 6.1 G/DL (6.4-8.3)
[2017-04-23 11:43] VITALS: BP 130/75
[2017-04-23 15:32] VITALS: BP 120/86
[2017-04-23 19:19] VITALS: BP 125/78
[2017-04-23 23:09] VITALS: BP 131/70
[2017-04-24 03:19] VITALS: BP 128/72
[2017-04-24 07:00] VITALS: BP 123/85
[2017-04-24 07:01] LABS: HEMATOCRIT 31.9 % (36.0-46.0); HEMOGLOBIN 10.7 G/DL (11.9-15.5); MCH 31.7 PG (29.0-34.0); MCHC 33.5 G/DL (30.0-36.0); MCV 94.4 FL (83-99); PLATELET COUNT 353 K/uL (156-360); RBC DIS.WIDTH-CV 14.7 % (11.8-14.6); RED BLOOD COUNT 3.38 M/uL (3.80-5.20); WHITE BLOOD COUNT 11.3 K/uL (4.1-10.2)
[2017-04-24 07:42] LABS: CHLORIDE 108 MEQ/L (99-109); CREATININE 0.7 MG/DL (0.6-1.3); GFR ESTIMATE (CALCULATED) > 59 mL/min/; GLUCOSE 165 mg/dL (70-99); POTASSIUM 3.5 MEQ/L (3.7-5.4); SODIUM 141 MEQ/L (136-147); UREA NITROGEN (BUN) 18 mg/dL (9-23)
[2017-04-24 07:45] LABS: MAGNESIUM 1.9 mg/dl (1.3-2.7)
[2017-04-24 11:00] VITALS: BP 104/64
[2017-04-24] MEDS ORDERED: LOPRESSOR50 MG PO (11:09)
[2017-04-24] MEDS ORDERED: LISINOPRIL20 MG PO (11:10)
[2017-04-24] MEDS ORDERED: BRILINTA90 MG PO (11:11)
[2017-04-24 16:09] VITALS: BP 107/57
[2017-04-24 20:19] VITALS: BP 110/68
[2017-04-25 01:06] VITALS: BP 108/64
[2017-04-25 04:56] VITALS: BP 104/64
[2017-04-25 07:53] VITALS: BP 118/61
[2017-04-25 12:05] VITALS: BP 137/65
== END 2017-04-25 13:45 | DRG 246 ==
LOC: EME 11:15 → 4EAST 14:23 → EDOF 14:23 → 4WEST 14:23 → ENRESERV 14:23 → 4WEST 14:41 → ENRESERV 04-15 19:38 → 4EAST 04-15 21:34 → ENRESERV 04-22 09:29 → 2EASTP 04-22 13:46 → ENRESERV 04-22 17:58 → 2EAST 04-22 17:58
PROVIDERS: Emergency Medicine; Family Medicine; Internal Medicine; Internal Medicine Cardiovascular Disease; Internal Medicine Critical Care Medicine; Physician Assistant; Specialist; Student in an Organized Health Care Education/Training Program; Surgery
PROC: B2111ZZ Fluoroscopy of Multiple Coronary Arteries using Low Osmolar Contrast (ICD-10-PCS; principal; 2017-04-08)
PROC: B2151ZZ Fluoroscopy of Left Heart using Low Osmolar Contrast (ICD-10-PCS; principal; 2017-04-08)
PROC: 4A023N7 Measurement of Cardiac Sampling and Pressure, Left Heart, Percutaneous Approach (ICD-10-PCS; principal; 2017-04-08)
PROC: 027034Z Dilation of Coronary Artery, One Artery with Drug-eluting Intraluminal Device, Percutaneous Approach (ICD-10-PCS; principal; 2017-04-08)
PROC: 5A1955Z Respiratory Ventilation, Greater than 96 Consecutive Hours (ICD-10-PCS; 2017-04-08)
PROC: B54BZZA Ultrasonography of Right Lower Extremity Veins, Guidance (ICD-10-PCS; 2017-04-08)
PROC: 06H033Z Insertion of Infusion Device into Inferior Vena Cava, Percutaneous Approach (ICD-10-PCS; 2017-04-08)
PROC: 03HY32Z Insertion of Monitoring Device into Upper Artery, Percutaneous Approach (ICD-10-PCS; 2017-04-08)
PROC: 0DH63UZ Insertion of Feeding Device into Stomach, Percutaneous Approach (ICD-10-PCS; 2017-04-21)
DX: I21.19 ST elevation (STEMI) myocardial infarction involving other coronary artery of inferior wall (principal); R57.0 Cardiogenic shock; I49.01 Ventricular fibrillation; J96.00 Acute respiratory failure, unspecified whether with hypoxia or hypercapnia; G93.1 Anoxic brain damage, not elsewhere classified; R40.20 Unspecified coma; I63.9 Cerebral infarction, unspecified; G83.21 Monoplegia of upper limb affecting right dominant side; R13.10 Dysphagia, unspecified; M62.82 Rhabdomyolysis; T46.6X5A Adverse effect of antihyperlipidemic and antiarteriosclerotic drugs, initial encounter; E87.4 Mixed disorder of acid-base balance; E83.42 Hypomagnesemia; E87.6 Hypokalemia; D69.6 Thrombocytopenia, unspecified; J44.9 Chronic obstructive pulmonary disease, unspecified; I10 Essential (primary) hypertension; F03.90 Unspecified dementia, unspecified severity, without behavioral disturbance, psychotic disturbance, mood disturbance, and anxiety; K21.9 Gastro-esophageal reflux disease without esophagitis; E78.5 Hyperlipidemia, unspecified; I25.10 Atherosclerotic heart disease of native coronary artery without angina pectoris; D64.9 Anemia, unspecified; G30.9 Alzheimer's disease, unspecified; F02.80 Dementia in other diseases classified elsewhere, unspecified severity, without behavioral disturbance, psychotic disturbance, mood disturbance, and anxiety; I71.4 Abdominal aortic aneurysm, without rupture; I73.9 Peripheral vascular disease, unspecified; K44.9 Diaphragmatic hernia without obstruction or gangrene; E66.9 Obesity, unspecified; F17.210 Nicotine dependence, cigarettes, uncomplicated; Z79.82 Long term (current) use of aspirin; Z98.1 Arthrodesis status; Z68.30 Body mass index [BMI] 30.0-30.9, adult
CPT/HCPCS: 36600; 70450; 70551; 71045; 71275; 74174; 74176; 76937; 80047; 80048; 80048 91; 80053; 80061; 80076; 81003; 82150; 82247; 82248; 82330; 82436; 82550; 82550 91; 82553; 82570; 82803; 82948; 83010 90; 83036; 83605; 83615; 83690; 83735; 83935; 84100; 84133; 84300; 84484; 85007; 85025; 85025 91; 85027; 85046; 85060; 85347; 85397 90; 85610; 85730; 86022 90; 86147 90; 86850; 86900; 86901; 87040; 87070; 87086; 87205; 87493; 87641; 92526 GN; 92610 GN; 93005; 93306; 94002; 94003; 94640; 94640 76; 94760; 94799; 95819; 97530 GO; 97530 GP; 99202; 99281; 99285; C1725; C1751; C1769; C1874; C1887; G0480; G0515 GO; G0515 GP; J0282; J0295; J0360; J0461; J0690; J1170; J1644; J1650; J1652; J1815; J2060; J2250; J2543; J2704; J3010; J3370; J3475; J3480; J7030; J7040; J7042; J7050; J7070

== ENCOUNTER 2017-07-08 02:01 | Inpatient (IN) | payer OTHER, BC ==
[2017-07-08] VITALS (11 sets, daily range): BP systolic 107–172; BP diastolic 71–100
[~2017-07-08] VITALS: Ht 165.1 cm; Wt 57.3 kg
[~2017-07-08 02:01] MED LIST changes: +AMLODIPINE BESYL5 MG PO; -BAYER CHILDREN'81 M1 PO; +BRILINTA90 MG PO; +CHILD ASPIRIN81 M1 PO; +LISINOPRIL20 MG PO; +LOPRESSOR50 MG PO; +RANITIDINE HCL150 MG PO
[2017-07-08 02:49] LABS: BASOPHIL (%) 0.3 % (0-1); EOSINOPHIL (%) 1.4 % (0-5); EOSINOPHIL COUNT 0.1 K/uL (0-0.3); HEMATOCRIT 31.6 % (36.0-46.0); HEMOGLOBIN 10.2 G/DL (11.9-15.5); IMMATURE GRANULOCYTE (%) 0.4 % (0.0-0.7); LYMPHOCYTE (%) 10.7 % (15-42); MCH 30.8 PG (29.0-34.0); MCHC 32.3 G/DL (30.0-36.0); MCV 95.5 FL (83-99); MONOCYTE (%) 6.3 % (3-12); MONOCYTE COUNT 0.6 K/uL (0-0.8); NEUTROPHIL (%) 80.9 % (45-76); NEUTROPHIL COUNT 7.8 K/uL (1.8-6.4); PLATELET COUNT 184 K/uL (156-360); RBC DIS.WIDTH-CV 14.5 % (11.8-14.6); RED BLOOD COUNT 3.31 M/uL (3.80-5.20); WHITE BLOOD COUNT 9.6 K/uL (4.1-10.2)
[2017-07-08 02:56] LABS: ALBUMIN 3.4 g/dL (3.2-4.8)
[2017-07-08 02:57] LABS: CHLORIDE 110 mEq/L (99-109); POTASSIUM 3.7 mEq/L (3.7-5.4); SODIUM 141 mEq/L (136-147)
[2017-07-08 02:59] LABS: GLUCOSE 126 mg/dL (70-99); TOTAL PROTEIN 5.7 g/dL (6.4-8.3)
[2017-07-08 03:01] LABS: TOTAL BILIRUBIN 0.4 mg/dL (0.0-1.0)
[2017-07-08 03:02] LABS: ALKALINE PHOSPHATASE 64 IU/L (3-129); CREATININE 0.7 mg/dL (0.6-1.3); GFR ESTIMATE (CALCULATED) > 59 mL/min/
[2017-07-08 03:04] LABS: AST (GOT) 12 IU/L (2-34); UREA NITROGEN (BUN) 14 mg/dL (9-23)
[2017-07-08 03:05] LABS: ALT (GPT) 12 IU/L (3-49)
[2017-07-08 03:06] LABS: LIPASE 17 U/L (1.0-51.0)
[2017-07-08 03:12] LABS: TROP-I INTERPRETATION NEGATIVE; TROPONIN-I 0.01 ng/mL (0.0-0.30)
[2017-07-08 03:31] LABS: INTER. NORMALIZED RATIO 1.1
[2017-07-08 03:34] LABS: PTT 20.6 SEC (25-37)
[2017-07-08 08:05] LABS: HEMATOCRIT 23.9 % (36.0-46.0); HEMOGLOBIN 7.4 G/DL (11.9-15.5); MCH 30.5 PG (29.0-34.0); MCV 98.4 FL (83-99); PLATELET COUNT 159 K/uL (156-360); RBC DIS.WIDTH-CV 14.7 % (11.8-14.6); RBC DIS.WIDTH-SD 53.5 % (39-53); RED BLOOD COUNT 2.43 M/uL (3.80-5.20); WHITE BLOOD COUNT 8.7 K/uL (4.1-10.2)
[2017-07-08 08:20] LABS: CHLORIDE 115 MEQ/L (99-109); CREATINE KINASE 34 IU/L (1-294); CREATININE 0.7 MG/DL (0.6-1.3); GFR ESTIMATE (CALCULATED) > 59 mL/min/; GLUCOSE 183 mg/dL (70-99); SODIUM 143 MEQ/L (136-147); TOTAL CK 34 IU/L (1-294); UREA NITROGEN (BUN) 12 mg/dL (9-23)
[2017-07-08 08:38] LABS: CK-MB 1.6 ng/mL (0.0-4.9); CKMB RELATIVE INDEX 4.7 (0.0-3.9)
[2017-07-08] MEDS ORDERED: TRAZODONE HCL50 MG PO (11:10)
[2017-07-08] MEDS ORDERED: DOCUSATE SODIU100 MG PO (11:15)
[2017-07-08] MEDS ORDERED: TYLENOL EXTRA500 MG PO (11:16)
[2017-07-08] MEDS ORDERED: BISAC-EVAC10 MG PR (11:17)
[2017-07-08] MEDS ORDERED: BISACODYL5 MG PO (11:18)
[2017-07-08] MEDS ORDERED: MELATONIN3 MG PO (11:21)
[2017-07-08 12:24] LABS: HEMATOCRIT 33.2 % (36.0-46.0); HEMOGLOBIN 10.7 G/DL (11.9-15.5)
[2017-07-08 13:56] LABS: TROP-I INTERPRETATION NEGATIVE; TROPONIN-I 0.07 ng/mL (0.0-0.30)
[2017-07-08 19:18] LABS: APPEARANCE CLEAR ((CLEAR)); BILIRUBIN NEGATIVE; BLOOD NEGATIVE; COLOR YELLOW ((YELLOW)); GLUCOSE (STRIP) NEGATIVE; KETONES NEGATIVE; LEUKOCYTES NEGATIVE; NITRITE NEGATIVE; PROTEIN (STRIP) NEGATIVE; UCUL ADDED? NO; UROBILINOGEN 0.2 MG/DL (0.2-1.0)
[2017-07-08 19:21] LABS: SPECIFIC GRAVITY > 1.060 (1.000-1.030)
[2017-07-09] VITALS (14 sets, daily range): BP systolic 126–204; BP diastolic 74–144
[2017-07-09 05:34] LABS: HEMATOCRIT 25.2 % (36.0-46.0); MCH 31.1 PG (29.0-34.0); MCHC 32.5 G/DL (30.0-36.0); MCV 95.5 FL (83-99); RBC DIS.WIDTH-CV 14.7 % (11.8-14.6); RBC DIS.WIDTH-SD 51.4 % (39-53); RED BLOOD COUNT 2.64 M/uL (3.80-5.20); WHITE BLOOD COUNT 8.3 K/uL (4.1-10.2)
[2017-07-09 05:40] LABS: HEMOGLOBIN 8.2 G/DL (11.9-15.5); PLATELET COUNT 111 K/uL (156-360)
[2017-07-09 05:52] LABS: CHLORIDE 110 MEQ/L (99-109); CREATININE 0.7 MG/DL (0.6-1.3); GFR ESTIMATE (CALCULATED) > 59 mL/min/; POTASSIUM 3.5 MEQ/L (3.7-5.4); SODIUM 141 MEQ/L (136-147); UREA NITROGEN (BUN) 10 mg/dL (9-23)
[2017-07-09 06:08] LABS: CREATINE KINASE 49 IU/L (1-294); TOTAL CK 49 IU/L (1-294)
[2017-07-09 06:19] LABS: GLUCOSE 93 mg/dL (70-99)
[2017-07-09 07:29] LABS: CK-MB 1.5 ng/mL (0.0-4.9); CKMB RELATIVE INDEX 3.1 (0.0-3.9)
[2017-07-10] VITALS (18 sets, daily range): BP systolic 97–204; BP diastolic 61–144
[2017-07-10 06:20] LABS: BASOPHIL (%) 0.3 % (0-1); EOSINOPHIL (%) 0.1 % (0-5); HEMATOCRIT 31.9 % (36.0-46.0); IMMATURE GRANULOCYTE (%) 0.4 % (0.0-0.7); LYMPHOCYTE (%) 8.8 % (15-42); LYMPHOCYTE COUNT 0.9 K/uL (1.0-2.8); MCH 30.1 PG (29.0-34.0); MCHC 33.9 G/DL (30.0-36.0); MONOCYTE (%) 9.7 % (3-12); NEUTROPHIL (%) 80.7 % (45-76); NEUTROPHIL COUNT 8.2 K/uL (1.8-6.4); PLATELET COUNT 125 K/uL (156-360); RBC DIS.WIDTH-CV 13.9 % (11.8-14.6); RBC DIS.WIDTH-SD 45.2 % (39-53); WHITE BLOOD COUNT 10.1 K/uL (4.1-10.2)
[2017-07-10 06:23] LABS: HEMOGLOBIN 10.8 G/DL (11.9-15.5); MCV 88.9 FL (83-99); RED BLOOD COUNT 3.59 M/uL (3.80-5.20)
[2017-07-11 03:58] VITALS: BP 103/62
[2017-07-11 08:00] VITALS: BP 127/85
[2017-07-11 11:25] VITALS: BP 126/85
[2017-07-11 14:58] VITALS: BP 137/85
[2017-07-11 19:05] VITALS: BP 137/79
[2017-07-12] VITALS: BP 135/87
[2017-07-12 04:00] VITALS: BP 128/72
[2017-07-12 05:31] LABS: HEMATOCRIT 33.8 % (36.0-46.0); HEMOGLOBIN 11.4 G/DL (11.9-15.5); MCH 30.4 PG (29.0-34.0); MCHC 33.7 G/DL (30.0-36.0); MCV 90.1 FL (83-99); PLATELET COUNT 139 K/uL (156-360); RBC DIS.WIDTH-CV 14.3 % (11.8-14.6); RBC DIS.WIDTH-SD 46.6 % (39-53); RED BLOOD COUNT 3.75 M/uL (3.80-5.20); WHITE BLOOD COUNT 9.7 K/uL (4.1-10.2)
[2017-07-12 05:47] LABS: CHLORIDE 103 MEQ/L (99-109); CREATININE 0.7 MG/DL (0.6-1.3); GFR ESTIMATE (CALCULATED) > 59 mL/min/; GLUCOSE 124 mg/dL (70-99); POTASSIUM 2.9 MEQ/L (3.7-5.4); SODIUM 139 MEQ/L (136-147); UREA NITROGEN (BUN) 17 mg/dL (9-23)
[2017-07-12 09:00] VITALS: BP 111/68
[2017-07-12 17:15] VITALS: BP 133/60
[2017-07-12 20:30] VITALS: BP 144/79
[2017-07-12 23:30] VITALS: BP 120/72
[2017-07-13 04:30] VITALS: BP 125/67
[2017-07-13 06:25] LABS: CHLORIDE 104 MEQ/L (99-109); CREATININE 0.8 MG/DL (0.6-1.3); GFR ESTIMATE (CALCULATED) > 59 mL/min/; GLUCOSE 115 mg/dL (70-99); POTASSIUM 3.2 MEQ/L (3.7-5.4); SODIUM 139 MEQ/L (136-147)
[2017-07-13 06:26] LABS: UREA NITROGEN (BUN) 26 mg/dL (9-23)
[2017-07-13 07:55] VITALS: BP 117/72
[2017-07-13 11:11] VITALS: BP 133/80
[2017-07-13 16:00] VITALS: BP 105/53
[2017-07-13 19:16] VITALS: BP 168/81
[2017-07-13 23:24] VITALS: BP 167/106
[2017-07-14 04:25] VITALS: BP 163/91
[2017-07-14 05:12] LABS: HEMATOCRIT 32.9 % (36.0-46.0); HEMOGLOBIN 10.9 G/DL (11.9-15.5); MCH 29.9 PG (29.0-34.0); MCHC 33.1 G/DL (30.0-36.0); MCV 90.1 FL (83-99); RBC DIS.WIDTH-CV 14.1 % (11.8-14.6); RBC DIS.WIDTH-SD 46.4 % (39-53); RED BLOOD COUNT 3.65 M/uL (3.80-5.20); WHITE BLOOD COUNT 9.5 K/uL (4.1-10.2)
[2017-07-14 05:20] LABS: PLATELET COUNT 210 K/uL (156-360)
[2017-07-14 05:35] LABS: CHLORIDE 104 MEQ/L (99-109); CREATININE 0.7 MG/DL (0.6-1.3); GFR ESTIMATE (CALCULATED) > 59 mL/min/; GLUCOSE 115 mg/dL (70-99); POTASSIUM 2.8 MEQ/L (3.7-5.4); SODIUM 139 MEQ/L (136-147); UREA NITROGEN (BUN) 21 mg/dL (9-23)
[2017-07-14 07:09] VITALS: BP 144/86
[2017-07-14 12:15] VITALS: BP 147/86
[2017-07-14 13:37] LABS: CHLORIDE 106 MEQ/L (99-109); CREATININE 0.6 MG/DL (0.6-1.3); GFR ESTIMATE (CALCULATED) > 59 mL/min/; GLUCOSE 99 mg/dL (70-99); SODIUM 141 MEQ/L (136-147); UREA NITROGEN (BUN) 18 mg/dL (9-23)
[2017-07-14 13:44] LABS: POTASSIUM 3.6 MEQ/L (3.7-5.4)
[2017-07-14 15:50] VITALS: BP 140/85
== END 2017-07-14 17:18 | DRG 269 ==
LOC: EME → EDBD 02:01 → EME 04:24 → SDC 04:24 → 2SOUTH 07:05 → 4WEST 07:05 → ENRESERV 07:28 → 4WEST 10:05 → ENRESERV 07-10 17:38 → 4EAST 07-10 19:23
PROVIDERS: Emergency Medicine; Physician Assistant Surgical; Specialist; Surgery
PROC: 04V03D6 (ICD-10-PCS; principal; 2017-07-08)
PROC: 30233N1 Transfusion of Nonautologous Red Blood Cells into Peripheral Vein, Percutaneous Approach (ICD-10-PCS; 2017-07-08)
DX: I71.3 Abdominal aortic aneurysm, ruptured (principal); G93.1 Anoxic brain damage, not elsewhere classified; I95.9 Hypotension, unspecified; J44.9 Chronic obstructive pulmonary disease, unspecified; D64.9 Anemia, unspecified; R00.1 Bradycardia, unspecified; T44.7X5A Adverse effect of beta-adrenoreceptor antagonists, initial encounter; E87.6 Hypokalemia; I25.10 Atherosclerotic heart disease of native coronary artery without angina pectoris; I10 Essential (primary) hypertension; E78.5 Hyperlipidemia, unspecified; K21.9 Gastro-esophageal reflux disease without esophagitis; Z86.74 Personal history of sudden cardiac arrest; I25.2 Old myocardial infarction; Z95.5 Presence of coronary angioplasty implant and graft; Z87.891 Personal history of nicotine dependence; Z79.82 Long term (current) use of aspirin; Z79.02 Long term (current) use of antithrombotics/antiplatelets
CPT/HCPCS: 70450; 71046; 74177; 80048; 80048 91; 80053; 81003; 82550; 82553; 82948; 83605; 83690; 84484; 85014; 85018; 85025; 85027; 85610; 85730; 86850; 86900; 86901; 86920; 87081; 87641; 93005; 99281; 99285; C1725; C1769; C1894; J0330; J0360; J0461; J0690; J1170; J1630; J1644; J1650; J1815; J2405; J2710; J2720; J3010; J7050; J7120; J7643; P9016

== ENCOUNTER 2017-07-16 12:56 | Observation (INO) | payer OTHER, BC ==
[~2017-07-16] VITALS: Ht 160 cm; Wt 58.9 kg
[~2017-07-16 12:56] MED LIST changes: +BISAC-EVAC10 MG PR; +BISACODYL5 MG PO; +DOCUSATE SODIU100 MG PO; +MELATONIN3 MG PO; +TRAZODONE HCL50 MG PO; +TYLENOL EXTRA500 MG PO
[2017-07-16 13:31] LABS: BASOPHIL (%) 0.3 % (0-1); EOSINOPHIL (%) 1.8 % (0-5); EOSINOPHIL COUNT 0.1 K/uL (0-0.3); HEMATOCRIT 30.6 % (36.0-46.0); HEMOGLOBIN 10.2 G/DL (11.9-15.5); IMMATURE GRANULOCYTE (%) 0.6 % (0.0-0.7); LYMPHOCYTE (%) 14.1 % (15-42); LYMPHOCYTE COUNT 1.1 K/uL (1.0-2.8); MCH 30.6 PG (29.0-34.0); MCHC 33.3 G/DL (30.0-36.0); MCV 91.9 FL (83-99); MONOCYTE (%) 9.5 % (3-12); MONOCYTE COUNT 0.7 K/uL (0-0.8); NEUTROPHIL (%) 73.7 % (45-76); NEUTROPHIL COUNT 5.8 K/uL (1.8-6.4); PLATELET COUNT 262 K/uL (156-360); RBC DIS.WIDTH-CV 14.4 % (11.8-14.6); RBC DIS.WIDTH-SD 48.7 % (39-53); RED BLOOD COUNT 3.33 M/uL (3.80-5.20); WHITE BLOOD COUNT 7.8 K/uL (4.1-10.2)
[2017-07-16 13:41] LABS: ALBUMIN 3.5 g/dL (3.2-4.8)
[2017-07-16 13:42] LABS: CHLORIDE 106 mEq/L (99-109); POTASSIUM 3.8 mEq/L (3.7-5.4); SODIUM 140 mEq/L (136-147)
[2017-07-16 13:44] LABS: GLUCOSE 97 mg/dL (70-99); TOTAL PROTEIN 6.6 g/dL (6.4-8.3)
[2017-07-16 13:46] LABS: TOTAL BILIRUBIN 1.3 mg/dL (0.0-1.0)
[2017-07-16 13:47] LABS: ALKALINE PHOSPHATASE 79 IU/L (3-129)
[2017-07-16 13:48] LABS: CREATININE 0.8 mg/dL (0.6-1.3); GFR ESTIMATE (CALCULATED) > 59 mL/min/
[2017-07-16 13:49] LABS: AST (GOT) 29 IU/L (2-34); UREA NITROGEN (BUN) 18 mg/dL (9-23)
[2017-07-16 13:51] LABS: ALT (GPT) 30 IU/L (3-49); LIPASE 42 U/L (1.0-51.0); TROP-I INTERPRETATION NEGATIVE; TROPONIN-I 0.01 ng/mL (0.0-0.30)
[2017-07-16] MEDS ORDERED: LISINOPRIL20 MG PO (15:51)
[2017-07-16] MEDS ORDERED: LOPRESSOR50 MG PO (15:51)
[2017-07-16] MEDS ORDERED: HIBICLENS118 ML TP (15:53)
[2017-07-16 17:34] VITALS: BP 141/66
[2017-07-16 19:18] LABS: TROP-I INTERPRETATION NEGATIVE; TROPONIN-I 0.01 ng/mL (0.0-0.30)
[2017-07-16 20:50] VITALS: BP 143/97
[2017-07-17 00:54] LABS: TROP-I INTERPRETATION NEGATIVE; TROPONIN-I 0.02 ng/mL (0.0-0.30)
[2017-07-17 03:39] VITALS: BP 99/62
[2017-07-17 06:29] LABS: CHLORIDE 108 MEQ/L (99-109); CREATININE 0.7 MG/DL (0.6-1.3); GFR ESTIMATE (CALCULATED) > 59 mL/min/; GLUCOSE 83 mg/dL (70-99); POTASSIUM 3.4 MEQ/L (3.7-5.4); SODIUM 141 MEQ/L (136-147); UREA NITROGEN (BUN) 12 mg/dL (9-23)
[2017-07-17 06:42] LABS: TROP-I INTERPRETATION NEGATIVE; TROPONIN-I 0.02 ng/mL (0.0-0.30)
[2017-07-17 07:08] VITALS: BP 140/92
== END 2017-07-17 12:29 | disposition designated cancer center or children's hospital (05) ==
LOC: EME 12:56 → EDOF 16:05 → ENRESERV 16:07 → 4SOUTH 17:29
PROVIDERS: Emergency Medicine; Hospitalist
DX: R07.9 Chest pain, unspecified (principal); Z86.74 Personal history of sudden cardiac arrest; I25.2 Old myocardial infarction; Z98.890 Other specified postprocedural states; R45.1 Restlessness and agitation; R79.1 Abnormal coagulation profile; F41.9 Anxiety disorder, unspecified; I10 Essential (primary) hypertension; G93.1 Anoxic brain damage, not elsewhere classified; E78.5 Hyperlipidemia, unspecified; D64.9 Anemia, unspecified; I25.10 Atherosclerotic heart disease of native coronary artery without angina pectoris; Z95.5 Presence of coronary angioplasty implant and graft; Z86.73 Personal history of transient ischemic attack (TIA), and cerebral infarction without residual deficits; Z86.79 Personal history of other diseases of the circulatory system; Z90.49 Acquired absence of other specified parts of digestive tract; Z90.710 Acquired absence of both cervix and uterus; Z79.82 Long term (current) use of aspirin; Z79.02 Long term (current) use of antithrombotics/antiplatelets; Z87.891 Personal history of nicotine dependence; Z82.49 Family history of ischemic heart disease and other diseases of the circulatory system
CPT/HCPCS: 71046; 71275; 74177; 80048; 80053; 81003; 83690; 84484; 85025; 85379; 93005; 99281; 99285; G0378; J1650; J2060; J7040

== ENCOUNTER 2017-07-19 09:12 | Emergency (ER) | payer OTHER, BC ==
[~2017-07-19] VITALS: Ht 157.5 cm; Wt 56.6 kg
[~2017-07-19 09:12] MED LIST changes: +HIBICLENS118 ML TP
[2017-07-19 10:50] LABS: BASOPHIL (%) 0.3 % (0-1); EOSINOPHIL (%) 1.8 % (0-5); EOSINOPHIL COUNT 0.1 K/uL (0-0.3); HEMATOCRIT 32.8 % (36.0-46.0); HEMOGLOBIN 10.8 G/DL (11.9-15.5); IMMATURE GRANULOCYTE (%) 0.5 % (0.0-0.7); LYMPHOCYTE (%) 12.6 % (15-42); LYMPHOCYTE COUNT 0.8 K/uL (1.0-2.8); MCH 30.7 PG (29.0-34.0); MCHC 32.9 G/DL (30.0-36.0); MCV 93.2 FL (83-99); MONOCYTE (%) 8.3 % (3-12); MONOCYTE COUNT 0.5 K/uL (0-0.8); NEUTROPHIL (%) 76.5 % (45-76); PLATELET COUNT 312 K/uL (156-360); RBC DIS.WIDTH-CV 14.2 % (11.8-14.6); RBC DIS.WIDTH-SD 47.8 % (39-53); RED BLOOD COUNT 3.52 M/uL (3.80-5.20); WHITE BLOOD COUNT 6.5 K/uL (4.1-10.2)
[2017-07-19 10:55] LABS: APPEARANCE CLEAR ((CLEAR)); BILIRUBIN NEGATIVE; BLOOD NEGATIVE; COLOR YELLOW ((YELLOW)); GLUCOSE (STRIP) NEGATIVE; KETONES NEGATIVE; LEUKOCYTES NEGATIVE; NITRITE NEGATIVE; PROTEIN (STRIP) NEGATIVE; SPECIFIC GRAVITY 1.005 (1.000-1.030); UROBILINOGEN 0.2 MG/DL (0.2-1.0)
[2017-07-19 10:56] LABS: INTER. NORMALIZED RATIO 1.2
[2017-07-19 10:58] LABS: PTT 28.7 SEC (25-37)
[2017-07-19 11:00] LABS: ALBUMIN 3.6 g/dL (3.2-4.8); CHLORIDE 109 mEq/L (99-109); POTASSIUM 3.7 mEq/L (3.7-5.4); SODIUM 143 mEq/L (136-147)
[2017-07-19 11:02] LABS: GLUCOSE 91 mg/dL (70-99); TOTAL PROTEIN 6.4 g/dL (6.4-8.3)
[2017-07-19 11:04] LABS: TOTAL BILIRUBIN 1.1 mg/dL (0.0-1.0)
[2017-07-19 11:06] LABS: ALKALINE PHOSPHATASE 87 IU/L (3-129); CREATININE 0.7 mg/dL (0.6-1.3); GFR ESTIMATE (CALCULATED) > 59 mL/min/
[2017-07-19 11:07] LABS: UREA NITROGEN (BUN) 17 mg/dL (9-23)
[2017-07-19 11:08] LABS: AST (GOT) 26 IU/L (2-34)
[2017-07-19 11:09] LABS: ALT (GPT) 23 IU/L (3-49); LIPASE 62 U/L (1.0-51.0)
[2017-07-19 13:56] VITALS: BP 110/61
== END 2017-07-19 13:57 ==
LOC: EME 09:12
PROVIDERS: Emergency Medicine
DX: R10.10 Upper abdominal pain, unspecified (principal); Z98.890 Other specified postprocedural states; I10 Essential (primary) hypertension; E78.5 Hyperlipidemia, unspecified; K21.9 Gastro-esophageal reflux disease without esophagitis; J44.9 Chronic obstructive pulmonary disease, unspecified; F03.90 Unspecified dementia, unspecified severity, without behavioral disturbance, psychotic disturbance, mood disturbance, and anxiety; F32.9 Major depressive disorder, single episode, unspecified; I25.2 Old myocardial infarction; Z86.74 Personal history of sudden cardiac arrest; Z86.73 Personal history of transient ischemic attack (TIA), and cerebral infarction without residual deficits; Z90.49 Acquired absence of other specified parts of digestive tract; Z87.891 Personal history of nicotine dependence; Z79.82 Long term (current) use of aspirin
CPT/HCPCS: 74177; 80053; 81003; 83605; 83690; 85025; 85610; 85730; 99281; 99285; J2060

== ENCOUNTER → 2017-08-29 | Outpatient (CLI) | payer OTHER, BC ==
[~2017-08-29] MED LIST changes: +CIPRO500 MG PO; +FLAGYL500 MG PO
== END | disposition home or self-care (01) ==
LOC: RAD 08-24 14:00
DX: K57.30 Diverticulosis of large intestine without perforation or abscess without bleeding (principal); I71.4 Abdominal aortic aneurysm, without rupture; Z90.49 Acquired absence of other specified parts of digestive tract; I99.9 Unspecified disorder of circulatory system
CPT/HCPCS: 74176

== ENCOUNTER 2017-09-03 21:52 | Emergency (ER) | payer OTHER, BC ==
[~2017-09-03] VITALS: Ht 160 cm; Wt 56.1 kg
[~2017-09-03 21:52] MED LIST changes: -CIPRO500 MG PO; -FLAGYL500 MG PO
[2017-09-03 23:08] LABS: BASOPHIL (%) 0.5 % (0-1); EOSINOPHIL (%) 1.5 % (0-5); EOSINOPHIL COUNT 0.1 K/uL (0-0.3); HEMATOCRIT 37.1 % (36.0-46.0); HEMOGLOBIN 12.2 G/DL (11.9-15.5); IMMATURE GRANULOCYTE (%) 0.2 % (0.0-0.7); LYMPHOCYTE (%) 22.4 % (15-42); LYMPHOCYTE COUNT 1.5 K/uL (1.0-2.8); MCH 30.4 PG (29.0-34.0); MCHC 32.9 G/DL (30.0-36.0); MCV 92.5 FL (83-99); MONOCYTE (%) 8.4 % (3-12); MONOCYTE COUNT 0.6 K/uL (0-0.8); NEUTROPHIL COUNT 4.4 K/uL (1.8-6.4); PLATELET COUNT 194 K/uL (156-360); RBC DIS.WIDTH-CV 15.8 % (11.8-14.6); RBC DIS.WIDTH-SD 53.3 % (39-53); RED BLOOD COUNT 4.01 M/uL (3.80-5.20); WHITE BLOOD COUNT 6.6 K/uL (4.1-10.2)
[2017-09-03 23:17] LABS: ALBUMIN 4.5 g/dL (3.2-4.8); CHLORIDE 111 mEq/L (99-109); POTASSIUM 3.7 mEq/L (3.7-5.4); SODIUM 147 mEq/L (136-147)
[2017-09-03 23:19] LABS: GLUCOSE 87 mg/dL (70-99)
[2017-09-03 23:20] LABS: TOTAL PROTEIN 7.8 g/dL (6.4-8.3)
[2017-09-03 23:22] LABS: TOTAL BILIRUBIN 0.6 mg/dL (0.0-1.0)
[2017-09-03 23:23] LABS: ALKALINE PHOSPHATASE 97 IU/L (3-129); CREATININE 1.1 mg/dL (0.6-1.3); GFR ESTIMATE (CALCULATED) 52 mL/min/
[2017-09-03 23:24] LABS: UREA NITROGEN (BUN) 22 mg/dL (9-23)
[2017-09-03 23:25] LABS: AST (GOT) 27 IU/L (2-34)
[2017-09-03 23:26] LABS: ALT (GPT) 22 IU/L (3-49)
[2017-09-03 23:27] LABS: LIPASE 39 U/L (1.0-51.0)
[2017-09-03 23:30] LABS: TROP-I INTERPRETATION NEGATIVE; TROPONIN-I 0.02 ng/mL (0.0-0.30)
[2017-09-04] MEDS ORDERED: CIPRO500 MG PO (02:14)
[2017-09-04] MEDS ORDERED: FLAGYL500 MG PO (02:14)
[2017-09-04 02:48] VITALS: BP 107/67
== END 2017-09-04 02:49 | disposition home or self-care (01) ==
LOC: EME → EDBD 21:52 → EME 21:52
PROVIDERS: Emergency Medicine
DX: K57.32 Diverticulitis of large intestine without perforation or abscess without bleeding (principal); R29.6 Repeated falls; I71.4 Abdominal aortic aneurysm, without rupture; I10 Essential (primary) hypertension; E78.5 Hyperlipidemia, unspecified; I25.2 Old myocardial infarction; Z86.74 Personal history of sudden cardiac arrest; Z86.73 Personal history of transient ischemic attack (TIA), and cerebral infarction without residual deficits; Z79.82 Long term (current) use of aspirin; Z87.891 Personal history of nicotine dependence
CPT/HCPCS: 70450; 74177; 80053; 83690; 84484; 85025; 99281; 99284; J2060; J7040